=== PATIENT | female | born 1965 | race Caucasian/White ===

== ENCOUNTER 2024-07-07 07:34 | Day surgery (SDC) | payer MEDICAID ==
[2024-07-01 14:38] LABS: BASOPHILS % (AUTO) 0.3 % (0-1); EOSINOPHILS # (AUTO) 0.1 X10'3 (0-0.9); LYMPHOCYTES # (AUTO) 2.1 X10'3 (1.1-4.8); LYMPHOCYTES % (AUTO) 32.9 % (21-51); MEAN CORPUSCULAR HEMOGLOBIN 31.3 PG (27.0-31.0); MEAN CORPUSCULAR HGB CONC 33.7 g/dL (33.0-36.5); MEAN CORPUSCULAR VOLUME 92.9 FL (78-98); MONOCYTES # (AUTO) 0.5 X10'3 (0-0.9); MONOCYTES % (AUTO) 7.6 % (2-12); NEUTROPHILS # (AUTO) 3.7 X10'3 (1.8-7.7); NEUTROPHILS % (AUTO) 57.2 % (42-75); PRE OP HEMATOCRIT 40.5 % (35.0-45.0); PRE OP HEMOGLOBIN 13.7 g/dL (12.0-16.0); PRE OP PLATELET COUNT 304 X10'3 (140-440); PRE OP WHITE BLOOD COUNT 6.4 10'3 (4.8-10.8); RED BLOOD COUNT 4.36 X10'6 (4.20-5.60)
[2024-07-01 14:57] LABS: ALKALINE PHOSPHATASE 108 IU/L (46-116); BLOOD UREA NITROGEN 8 MG/DL (7-18); PRE OP ALT 19 U/L (30-65); PRE OP AST 16 U/L (10-37)
[2024-07-01 15:04] LABS: BUN/CREATININE RATIO 12.1 (10.0-20.0); CALCIUM 9.4 MG/DL (8.5-10.1); CHLORIDE 103 MMOL/L (99-107); CREATININE 0.66 MG/DL (0.40-0.90); PRE OP ANION GAP 5 (8-16); PRE OP BILIRUB, TOTAL 0.3 MG/DL (0.0-1.0); PRE OP GLUCOSE 89 MG/DL (70-104); PRE OP POTASSIUM 3.9 MMOL/L (3.4-5.1); PRE OP SODIUM 139 MMOL/L (135-145); TOTAL CARBON DIOXIDE 31.2 MMOL/L (24-32); eGFR > 90 ML/MIN
[2024-07-01 15:53] LABS: PRE OP PROTIME 9.6 SECONDS (9.0-12.0)
[2024-07-01 15:55] LABS: PRE OP INR 0.9 INR
[~2024-07-07] VITALS: Ht 163.8 cm; Wt 60.6 kg
[2024-07-07] VITALS (22 sets, daily range): BP systolic 97–146; BP diastolic 51–83; PULSE 49–70; RESP 12–26; TEMP 97.8; O2SAT 92–100
[2024-07-07] MEDS: cefazolin 2gm/D5W 100mL 100 ML IV ONE (05:30)
[2024-07-07] MEDS: LIDOcaine 1% (10mg/ml)w/preservative inj. 20ml MDV ONE (07:00)
[2024-07-07] MEDS: methylene blue (5mg/ml) 50mg/10ml ampul IV ONE (07:00)
[2024-07-07] MEDS: BUPIVACAINE liposomal/PF 13.3 MG/ML vial IM ONE (07:01)
[2024-07-07] MEDS: BUPIVAcaine 2.5mg/ml inj 50ml vial (contains preservative) ONE (07:01)
[~2024-07-07 07:34] MED LIST: GABA-530 PO; SIMV-42 PO
[2024-07-07] MEDS: ringers solution, lacted 1,000 ML IV SCH (08:35)
[2024-07-07] MEDS: famotidine 20mg tablet PO ONE (08:35)
[2024-07-07] MEDS ORDERED: sevoflurane 250ml liquid IH ONE (09:35)
[2024-07-07] MEDS ORDERED: fentaNYL/PF 50MCG/1 ML 2ML syringe ONE (09:41)
[2024-07-07] MEDS ORDERED: LIDOcaine 2% (20mg/ml) 5ml vial ONE (09:42)
[2024-07-07] MEDS ORDERED: propofol inj 20 ML IV ONE (09:42)
[2024-07-07] MEDS ORDERED: rocuronium 10mg/ml inj IV ONE (09:43)
[2024-07-07] MEDS ORDERED: ondansetron/PF 4mg/2ml inj ONE (09:43)
[2024-07-07] MEDS ORDERED: dexamethasone sod phosphate 4mg/ml inj. ONE (09:43)
[2024-07-07] MEDS ORDERED: neostigmine methylsulfate 1 MG/ML 10ml vial ONE (10:44)
[2024-07-07] MEDS ORDERED: glycopyrrolate 0.2mg/ml inj ONE (10:44)
[2024-07-07] MEDS ORDERED: ringers solution, lacted 1,000 ML IV SCH (11:00)
[2024-07-07] MEDS ORDERED: morphine 4 MG/ML inj SYRINge IV PRN (11:00)
[2024-07-07] MEDS ORDERED: meperidine/PF 25mg/ml syringe IV PRN ×3 (11:00)
[2024-07-07] MEDS ORDERED: proCHLORperazine 10 MG/2 ml inj IV PRN (11:00)
[2024-07-07] MEDS ORDERED: labetalol 20mg/4ml (5mg/ml) syringe IV PRN (11:00)
[2024-07-07] MEDS ORDERED: enalaprilat dihydrate 2.5mg/2ml vial IV PRN (11:00)
[2024-07-07] MEDS ORDERED: morphine 2 MG/ML inj. syringe IV PRN (11:00)
[2024-07-07] MEDS ORDERED: HYDROmorphone inj. 0.5 MG/0.5 ML DISP.SYRIN IV ONE (11:40)
[2024-07-07] MEDS: ondansetron/PF 4mg/2ml inj IV PRN (14:11)
== END 2024-07-07 16:23 | disposition home or self-care (01) ==
LOC: PAS 07:34
PROVIDERS: ATTEND Surgery
DX: L90.5 Scar conditions and fibrosis of skin (principal); N60.11 Diffuse cystic mastopathy of right breast; N64.89 Other specified disorders of breast; E78.5 Hyperlipidemia, unspecified; I25.2 Old myocardial infarction; Z87.891 Personal history of nicotine dependence; Z79.899 Other long term (current) drug therapy; Z90.710 Acquired absence of both cervix and uterus; Z98.51 Tubal ligation status; Z98.890 Other specified postprocedural states; Z88.1 Allergy status to other antibiotic agents; Z91.030 Bee allergy status
CPT/HCPCS: 19301; 36415; 76098; 80053; 82948; 85025; 85610; 85730; 93005; A6258; C9290; J0690; J1100; J2405; J2704; J2710; J3010; J3490; J7030; J7120; Q9968; Z7506; Z7508; Z7512; A4215; A4618; A7000